=== PATIENT | female | born 1965 | race Caucasian/White ===

== ENCOUNTER 2017-06-17 17:28 | Emergency (ER) | payer BC ==
--- NOTE | 2017-06-17 20:35 | RAD ---
INDICATION: Left lower quadrant abdominal pain. COMPARISON: There are no prior studies available for comparison. TECHNIQUE: A CT scan of the abdomen and pelvis was performed without intravenous or oral contrast. Contiguous axial sections were obtained from the lung bases through the symphysis pubis. Images were reconstructed in the coronal and sagittal planes. FINDINGS: The lung bases are clear. No pleural effusion is present. The liver and spleen are within normal limits in size without significant focal abnormality on this noncontrast study. No calcified gallstones are seen. The pancreas appears to be within normal limits in size. The adrenal glands and kidneys are normal in size. No renal calculi or hydronephrosis is seen. The aorta is normal in caliber with mild calcific plaque present. No significant enlarged retroperitoneal lymph nodes are seen. There is a small hiatal hernia. The stomach, small and large bowel appear nondistended. The appendix is not visualized. There is a moderate to large amount retained stool. There is mild descending and sigmoid diverticulosis without evidence for diverticulitis. There is a small periumbilical hernia containing fat. The patient is status post hysterectomy. No free intraperitoneal air or fluid is seen. No significant focal osseous abnormality is seen. IMPRESSION: 1. NO EVIDENCE FOR ACUTE FINDING OR CAUSE FOR THE PATIENT'S ABDOMINAL PAIN IS SEEN. 2. STATUS POST HYSTERECTOMY. 3. SMALL HIATAL HERNIA. 4. MODERATE TO LARGE AMOUNT RETAINED STOOL.
[2017-06-17 20:49] LABS: ABS Basophils 0 10^3/ul (0-0.2); ABS Eosinophils 0.3 10^3/ul (0-0.6); ABS Lymphocytes 2.8 10^3/ul (1.0-4.8); ABS Monocytes 0.4 10^3/ul (0-0.8); ABS Neutrophils 2.6 10^3/ul (1.5-7.7); ABS Nucleated RBC 0 10^3/ul; Eosinophil % 4.8 % (0-6); Hematocrit 38 % (35-47); Hemoglobin 12.8 g/dl (12.0-16.0); Lymphocyte % 45.8 % (25-47); Mean Corpuscular HGB Conc 34 g/dl (31-36); Mean Corpuscular Hemoglobin 31 pg (27-31); Mean Corpuscular Volume 91 fL (80-97); Mean Platelet Volume 7 um3 (7.4-10.4); Nucleated Red Blood Cells % 0; Platelet Count 400 10^3/ul (150-450); Red Blood Count 4.17 10^6/ul (4.0-5.4); Red Cell Distribution Width 13 % (10.5-15); White Blood Count 6.2 10^3/ul (3.5-10.8)
[2017-06-17 21:05] LABS: EGFR Non-African American 109.6 (>60)
[2017-06-17 21:09] LABS: INR 0.9 (0.77-1.02)
[2017-06-17 22:19] LABS: Urine Appearance Clear; Urine Blood Negative (Negative); Urine Color Yellow; Urine Ketones Negative (Negative); Urine Protein Negative (Negative); Urine Specific Gravity 1.014 (1.010-1.030); Urine Urobilinogen Negative (Negative)
--- NOTE | 2017-06-17 22:49 | ED ---
Brant Collazo Tecjoon, scribed for Rob Sarmiento MD on 06/17/17 at 2016 . Abdominal Pain/Female - HPI Summary HPI Summary: This patient is a 52 year old female presenting to [facility] with a chief complaint of LLQ abd pain since a few days ago. Patient states she went to see the doctor today and was referred to the ED. The pain is intermittent. The pain is rated 2/10 in severity. Symptoms aggravated by nothing. Symptoms alleviated by rest, not moving. The patient treated the pain with Aspirin. Patient also attempted to treat the sx with a laxative, but to no relief. Patient additionally reports nausea, constipation. Patient denies vomiting, vaginal bleeding/discharge, diarrhea. Patient states her sx are similar to her experience with ovarian cancer 12 years ago. - History of Current Complaint Chief Complaint: EDAbdPain Stated Complaint: ABD PAIN Time Seen by Provider: 06/17/17 19:55 Hx Obtained From: Patient Onset/Duration: Lasting Days, Still Present Timing: Intermittent Episode Lasting Severity Currently: Mild Pain Intensity: 2 Pain Scale Used: 0-10 Numeric Location: Discrete At: LLQ Aggravating Factor(s): Nothing Alleviating Factor(s): Other: - rest Associated Signs and Symptoms: Positive: Negative - vomiting, vaginal bleeding/ discharge, diarrhea, Other: - nausea, constipation Allergies/Adverse Reactions: Allergies Allergy/AdvReac Type Severity Reaction Status Date / Time No Known Allergies Allergy Verified 12/08/15 19:04 PMH/Surg Hx/FS Hx/Imm Hx Previously Healthy: No Cardiovascular History: Denies: Hx Pacemaker/ICD History: Reports: Hx Kidney Infection - HISTORY OF 1 IN THE PAST Sensory History: Reports: Hx Contacts or Glasses - INSTRUCTS GIVEN- WILL BRING SOLUTION AND CASE Denies: Hx Hearing Aid Opthamlomology History: Reports: Hx Contacts or Glasses - INSTRUCTS GIVEN- WILL BRING SOLUTION AND CASE Neurological History: Reports: Hx Transient Ischemic Attacks (TIA) - jun 2014, Other Neuro Impairments/Disorders - HISTORY F [place] IN EARLY S- STATES NO RESIDUAL EFFECTS Psychiatric History: Reports: Hx Anxiety - NO MEDICATION FOR Denies: Hx Panic Disorder - Cancer History Cancer Type, Location and Year: OVARIAN Hx Chemotherapy: No - Surgical History Surgery Procedure, Year, and Place: 2006-COMPLETE HYSTERECTOMY. TUBAL LIGATION. RIGHT HAND ORIF Hx Anesthesia Reactions: No - Immunization History Date of Tetanus Vaccine: remote Date of Influenza Vaccine: never Infectious Disease History: No Infectious Disease History: Denies: Traveled Outside the [place] in Last 30 Days - Family History Known Family History: Positive: Other - cancer "all sorts" - Social History Alcohol Use: Rare Hx Substance Use: No Substance Use Type: Reports: None Hx Tobacco Use: Yes Smoking Status (MU): Former Smoker Amount Used/How Often: OFF AND ON SINCE AGE 19 Have You Smoked in the Last Year: No Review of Systems Negative: Fever Positive: Abdominal Pain, Nausea, Other - constipation. Negative: Vomiting, Diarrhea Genitourinary: Negative - vaginal bleeding/discharge All Other Systems Reviewed And Are Negative: Yes Physical Exam - Summary Physical Exam Summary: Appearance: Well-appearing, Well-nourished Skin: Warm Eyes: Normal ENT: Normal Neck: Supple, nontender Respiratory: Clear to auscultation Cardiovascular: Normal S1, S2. No murmurs. Normal distal pulses in tibial and radial bilaterally. Abdomen: Minimal tenderness in epigastrium, LLQ. No guarding or rebound. Normal bowel sounds. Musculoskeletal: Normal, Strength/ROM Intact Neurological: Normal, A&Ox3 Psychiatric: Normal Triage Information Reviewed: Yes Vital Signs On Initial Exam: Initial Vitals Temp Pulse Resp BP Pulse Ox 97.1 F 74 18 125/79 100 06/17/17 17:33 06/17/17 17:33 06/17/17 17:33 06/17/17 17:33 06/17/17 17:33 Vital Signs Reviewed: Yes Diagnostics - Vital Signs Vital Signs Temp Pulse Resp BP Pulse Ox 06/17/17 17:33 97.1 F 74 18 125/79 100 - Laboratory Lab Results: Lab Results 06/17/17 06/17/17 06/17/17 Range/Units 20:40 20:40 20:40 WBC 6.2 (3.5-10.8) 10^3/ul RBC 4.17 (4.0-5.4) 10^6/ul Hgb 12.8 (12.0-16.0) g/dl Hct 38 (35-47) % MCV 91 (80-97) fL MCH 31 (27-31) pg MCHC 34 (31-36) g/dl RDW 13 (10.5-15) % Plt Count 400 (150-450) 10^3/ul MPV 7 L (7.4-10.4) um3 Neut % (Auto) 42.7 (38-83) % Lymph % (Auto) 45.8 (25-47) % [place] % (Auto) 6.3 (1-9) % Eos % (Auto) 4.8 (0-6) % Baso % (Auto) 0.4 (0-2) % Absolute Neuts (auto) 2.6 (1.5-7.7) 10^3/ul Absolute Lymphs (auto) 2.8 (1.0-4.8) 10^3/ul Absolute Monos (auto) 0.4 (0-0.8) 10^3/ul Absolute Eos (auto) 0.3 (0-0.6) 10^3/ul Absolute Basos (auto) 0 (0-0.2) 10^3/ul Absolute Nucleated RBC 0 10^3/ul Nucleated RBC % 0 INR (Anticoag Therapy) 0.90 (0.77-1.02) APTT 32.8 (26.0-36.3) seconds Sodium 137 (133-145) mmol/L Potassium 3.5 (3.5-5.0) mmol/L Chloride 105 (101-111) mmol/L Carbon Dioxide 24 (22-32) mmol/L Anion Gap 8 (2-11) mmol/L BUN 15 (6-24) mg/dL Creatinine 0.58 (0.51-0.95) mg/dL Est GFR ( Amer) 141.0 (>60) Est GFR (Non-Af Amer) 109.6 (>60) BUN/Creatinine Ratio 25.9 H (8-20) Glucose 91 (70-100) mg/dL Calcium 9.3 (8.6-10.3) mg/dL Magnesium 2.0 (1.9-2.7) mg/dL Total Bilirubin 0.30 (0.2-1.0) mg/dL AST 17 (13-39) U/L ALT 27 (7-52) U/L Alkaline Phosphatase 97 (34-104) U/L Total Protein 7.1 (6.4-8.9) g/dL Albumin 4.1 (3.2-5.2) g/dL Globulin 3.0 (2-4) g/dL Albumin/Globulin Ratio 1.4 (1-3) Lipase 14 (11.0-82.0) U/L Urine Color Urine Appearance Urine pH (5-9) Ur Specific Kiefer (1.010-1.030) Urine Protein (Negative) Urine Ketones (Negative) Urine Blood (Negative) Urine Nitrate (Negative) Urine Bilirubin (Negative) Urine Urobilinogen (Negative) Ur Leukocyte Esterase (Negative) Urine WBC (Auto) (Absent) Urine RBC (Auto) (Absent) Ur Squamous Epith Cells (Absent) Urine Bacteria (Absent) Urine Glucose (Negative) 06/17/17 Range/Units 22:07 WBC (3.5-10.8) 10^3/ul RBC (4.0-5.4) 10^6/ul Hgb (12.0-16.0) g/dl Hct (35-47) % MCV (80-97) fL MCH (27-31) pg MCHC (31-36) g/dl RDW (10.5-15) % Plt Count (150-450) 10^3/ul MPV (7.4-10.4) um3 Neut % (Auto) (38-83) % Lymph % (Auto) (25-47) % [place] % (Auto) (1-9) % Eos % (Auto) (0-6) % Baso % (Auto) (0-2) % Absolute Neuts (auto) (1.5-7.7) 10^3/ul Absolute Lymphs (auto) (1.0-4.8) 10^3/ul Absolute Monos (auto) (0-0.8) 10^3/ul Absolute Eos (auto) (0-0.6) 10^3/ul Absolute Basos (auto) (0-0.2) 10^3/ul Absolute Nucleated RBC 10^3/ul Nucleated RBC % INR (Anticoag Therapy) (0.77-1.02) APTT (26.0-36.3) seconds Sodium (133-145) mmol/L Potassium (3.5-5.0) mmol/L Chloride (101-111) mmol/L Carbon Dioxide (22-32) mmol/L Anion Gap (2-11) mmol/L BUN (6-24) mg/dL Creatinine (0.51-0.95) mg/dL Est GFR ( Amer) (>60) Est GFR (Non-Af Amer) (>60) BUN/Creatinine Ratio (8-20) Glucose (70-100) mg/dL Calcium (8.6-10.3) mg/dL Magnesium (1.9-2.7) mg/dL Total Bilirubin (0.2-1.0) mg/dL AST (13-39) U/L ALT (7-52) U/L Alkaline Phosphatase (34-104) U/L Total Protein (6.4-8.9) g/dL Albumin (3.2-5.2) g/dL Globulin (2-4) g/dL Albumin/Globulin Ratio (1-3) Lipase (11.0-82.0) U/L Urine Color Yellow Urine Appearance Clear Urine pH 6.0 (5-9) Ur Specific Kiefer 1.014 (1.010-1.030) Urine Protein Negative (Negative) Urine Ketones Negative (Negative) Urine Blood Negative (Negative) Urine Nitrate Negative (Negative) Urine Bilirubin Negative (Negative) Urine Urobilinogen Negative (Negative) Ur Leukocyte Esterase 1+ H (Negative) Urine WBC (Auto) Trace(0-5/hpf) (Absent) Urine RBC (Auto) Absent (Absent) Ur Squamous Epith Cells Present H (Absent) Urine Bacteria Absent (Absent) Urine Glucose Negative (Negative) Result Diagrams: 06/17/17 20:40 06/17/17 20:40 Lab Statement: Any lab studies that have been ordered have been reviewed, and results considered in the medical decision making process. - CT CT Abd/Pel CT Interpretation: Positive (See Comments) - CT Abd/Pel reveals, per radiologist , IMPRESSION: 1. NO EVIDENCE FOR ACUTE FINDING OR CAUSE FOR THE PATIENT'S ABDOMINAL PAIN IS SEEN. 2. STATUS POST HYSTERECTOMY. 3. SMALL HIATAL HERNIA. 4. MODERATE TO LARGE AMOUNT RETAINED STOOL. ED physician has reviewed this radiology report. CT Interpretation Completed By: Radiologist Re-Evaluation - Re-Evaluation First Eval Re-Evaluation Time: 22:40 Change: Improved Comment: Patient states she is feeling much better. Abdominal Pain Fem Course/Dx - Course Course Of Treatment: negative ct scan, consistent with radical hysterectomy, tolerating PO, abd pain relieved, instructed to fu wtih with oil speculator and take laxatives. agrese to and understnads dc instructions. - Diagnoses Provider Diagnoses: Constipation Discharge - Discharge Plan Condition: Improved Disposition: HOME Prescriptions: Polyethylene Glycol 3350* [Miralax*] 17 gm PO DAILY #7 packet Senna TAB* [Senokot TAB*] 2 tab PO DAILY #20 tab Patient Education Materials: Constipation (ED), Acute Abdominal Pain (DC) Referrals: Susanna Allred MD [Primary Care Provider] - Meseret Gracia MD [Medical Doctor] - Additional Instructions: PLEASE MAKE AN APPOINTMENT FIRST THING IN THE MORNING TO BE SEEN BY A [employer]ACH[employer] MECHANIC WITHIN 1 WEEK PLEASE RETURN IMMEDIATELY TO THE ER IF YOU HAVE ANY WORSENING OR CONCERNING SYMPTOMS PLEASE MAKE AN APPOINTMENT TO BE SEEN BY YOUR PRIMARY CARE DOCTOR WITHIN 1 WEEK The documentation as recorded by the Brant donald Tecjoon accurately reflects the service I personally performed and the decisions made by me, Rob Sarmiento MD.
[2017-06-17 23:26] VITALS: BP 128/80
== END 2017-06-17 23:20 | disposition home or self-care (01) ==
LOC: ED 17:28
DX: K59.00 Constipation, unspecified (principal); R10.32 Left lower quadrant pain; Z87.891 Personal history of nicotine dependence; R11.0 Nausea
CPT/HCPCS: 36415; 74176; 80053; 81003; 81015; 83690; 83735; 85025; 85610; 85730; 87086; 99282